=== PATIENT | female | born 1945 | race Caucasian/White ===

== ENCOUNTER 2021-08-16 08:02 | Day surgery (SDC) | payer MEDICARE, OTHER ==
[~2021-08-16] VITALS: Ht 167.6 cm; Wt 73.1 kg
[~2021-08-16 08:02] MED LIST: ALEN35TA47 PO; ASCO500C PO; BUPIVACAINE MPF 0.25% 30 ML VIAL. ONE; CALC-71 PO; CHOL20009 PO; DULO60CA7 PO; GABA600T7 PO; HYDROmorphone 2 MG/ML INJ. IVP PRN; IV RINGERS,LACTATED 1000ML 1,000 ML IV SCH; LIPITOR80 MG PO; LISI10TA16 PO; MORPHINE SULFATE 2 MG/ML INJ. IVP PRN; PROCHLORPERAZINE 10 MG/2 ML VIAL. IVP PRN; VITA400T6 PO; fentaNYL PF VIAL 100 MCG/2 ML VIAL IVP PRN
[2021-08-16 08:23] VITALS: BP 160/85
[2021-08-16] MEDS ORDERED: OXYC5TAB88 PO (08:53)
[2021-08-16] MEDS ORDERED: ONDA4TAB12 PO (08:54)
--- NOTE | 2021-08-16 08:57 | DISCH ---
DISCHARGE INSTRUCTIONS Condition on Discharge Condition on Discharge: Stable Activity After Discharge Activity Instructions for Disc: Activity as tolerated, Avoid exertion Bathing Instructions: Shower-keep dressing dry, No Tub Bath until see Lifting Instructions after Dis: No heavy lifting, No pulling or pushing, Do not lift >10 pounds Exercise Instruction after Dis: Walk 10 min, 3 x per day Driving Instructions after Dis: Do not drive Weight Bearing Status after Di: Other, see below (No lifting >10 lbs operative extremity) Diet after Discharge Diet after Discharge: Regular Wound Incision Care Wound/Incision Care: Ice to area for comfort, Keep wound elevated, Change dressing (on POD #3. Keep incision covered until first follow up appointment. ) Contacting the DRHan after DC Call your doctor for: If your condition worsens Follow-Up Follow up with: Follow up with orthopedic clinic in 2 weeks. [phone] Treatment/Equipment after DC Adaptive Equipment Issued: None CHAPARRO SALAZAR Aug 16, 2021 08:57
[2021-08-16] MEDS ORDERED: PROPOFOL 10 MG/ML (20ML) VIAL. IV ONE (09:20)
[2021-08-16] MEDS ORDERED: ONDANSETRON PF 4 MG/2 ML VIAL. ONE (09:21)
[2021-08-16] MEDS ORDERED: fentaNYL PF VIAL 100 MCG/2 ML VIAL ONE (09:21)
[2021-08-16] MEDS ORDERED: LIDOCAINE 1% PF 5 ML VIAL. ONE (09:21)
[2021-08-16] MEDS ORDERED: DEXAMETHASONE SOD PHOS 4 MG/ML VIAL ONE (09:21)
[2021-08-16] MEDS ORDERED: oxyCODONE/APAP 5/325 1 TAB TABLET PO ONE (10:15)
--- NOTE | 2021-08-16 10:16 | OP ---
DATE OF SURGERY: 08/16/2021 PREOPERATIVE DIAGNOSIS: Trigger finger, left middle finger. POSTOPERATIVE DIAGNOSIS: Trigger finger, left middle finger. PROCEDURE: Trigger finger release, left middle finger. SURGEON: Huy Potter Jr, DO [facility] [employer] WORKER: SHANTANU Maravilla ANESTHESIA: General. COMPLICATIONS: None. ESTIMATED BLOOD LOSS: 5 mL DESCRIPTION OF PROCEDURE: Left upper extremity was then prepped and draped in a sterile fashion. Incision was made directly over the area of the A1 doron. This was carefully taken through skin and subcutaneous tissues, dissecting down to identify the A1 doron. This was easily identified and released in its entirety. The underlying tendons were noted to be intact without any tearing or fraying at this point. They were fully released and evaluated. This was then thoroughly irrigated. The wound was reapproximated in an interrupted fashion using 3-0 nylon. Local was placed within the area of the incision site itself. Sterile dressing was applied. Tourniquet was deflated with good return of pulses and capillary refill with no excessive bleeding noted. The patient was then taken from the operative bed to the postoperative bed, taken to the PACU in stable condition. DONIS DR: Dimitrios TID: [id number]
[2021-08-16] MEDS ORDERED: oxyCODONE/APAP 5/325 1 TAB TABLET ONE (10:18)
[2021-08-16 10:28] VITALS: BP 148/75
== END 2021-08-16 10:50 | disposition home or self-care (01) ==
LOC: SURG 08:02
PROVIDERS: ATTEND Orthopaedic Surgery
DX: M65.332 Trigger finger, left middle finger (principal); I10 Essential (primary) hypertension; E78.00 Pure hypercholesterolemia, unspecified; E11.9 Type 2 diabetes mellitus without complications; M19.90 Unspecified osteoarthritis, unspecified site; F32.9 Major depressive disorder, single episode, unspecified; G47.30 Sleep apnea, unspecified; Z87.891 Personal history of nicotine dependence; Z90.710 Acquired absence of both cervix and uterus; Z98.890 Other specified postprocedural states; Z79.899 Other long term (current) drug therapy
CPT/HCPCS: 26055; A4930; A6402; J0690; J1100; J2405; J2704; J3010; J3490; A4657; A6452